=== PATIENT | male | born 1955 | race Caucasian/White ===

== ENCOUNTER 2024-01-20 22:52 | Emergency (ER) | payer OTHER, MEDICARE ==
[~2024-01-20] VITALS: Ht 185.4 cm; Wt 105.1 kg
[2024-01-20] MEDS ORDERED: JANTOVEN5 MG PO (23:08)
[2024-01-20] MEDS ORDERED: TOPROL XL50 MG PO (23:08)
[2024-01-20] MEDS ORDERED: ASPIRIN81 MG PO (23:09)
[2024-01-20 23:42] LABS: BASOPHILS 0.9 % (0-2); EOSINOPHILS 5.8 % (0-6); HEMATOCRIT 38.4 % (35.0-50.0); HEMOGLOBIN 12.8 g/dL (12.0-18.0); MCH 29.4 (27-36); MCHC 33.2 g/dl (30-36); MCV 88.4 fl (81-99); MONOCYTES 8.9 % (0-12); NEUTROPHILS 59.4 % (39-80); PLATELET COUNT 220 K/uL (140-440); RBC 4.35 M/ul (4.3-5.7); RDW 14.2 (10.5-15.0)
[2024-01-20 23:52] LABS: INR 1.88 (0.80-1.30); PROTIME 20.7 Sec (11.2-14.2)
[2024-01-20 23:56] LABS: ALBUMIN 3.7 g/dL (3.4-5.0); ALBUMIN/GLOBULIN RATIO 1.28 (1.1-2.4); BILIRUBIN, TOTAL 0.8 ng/dL (0.2-1.0); BUN/CREATININE RATIO 14.58 (6.0-28.6); CALCIUM 8.8 mg/dL (8.5-10.1); CREATININE, SERUM 0.96 mg/dL (0.70-1.30); PROTEIN, TOTAL 6.6 g/dL (6.4-8.2)
[2024-01-21] MEDS ORDERED: MORPHINE SULFATE 4 MG/ML VIAL ONE (00:18)
[2024-01-21] MEDS ORDERED: ondansetron HCL 4 MG/2 ML VIAL ONE (00:20)
[2024-01-21] MEDS ORDERED: ondansetron HCL 4 MG/2 ML VIAL IV ONE (00:30)
[2024-01-21] MEDS ORDERED: MORPHINE SULFATE 4 MG/ML VIAL IV ONE (00:30)
[2024-01-21 00:42] LABS: ABO A; ANTIBODY SCREEN NEGATIVE; RH POSITIVE
[2024-01-21] MEDS ORDERED: ONDANSETRON ODT8 MG PO (01:03)
[2024-01-21] MEDS ORDERED: HYDROCODON-ACE1 EA10 PO (01:03)
[2024-01-21] MEDS ORDERED: ONDANSETRON 4 MG HOME.PACK SL ONE (01:15)
[2024-01-21] MEDS ORDERED: HYDROCODONE BIT/ACETAMINOPHEN 5/325 MG 1 TAB HOME.PACK PO ONE (01:15)
[2024-01-21 01:37] VITALS: BP 153/88
== END 2024-01-21 01:44 | disposition home or self-care (01) ==
LOC: ED 22:52
PROVIDERS: Family Medicine
DX: S22.41XA Multiple fractures of ribs, right side, initial encounter for closed fracture (principal); S30.1XXA Contusion of abdominal wall, initial encounter; S20.211A Contusion of right front wall of thorax, initial encounter; V86.59XA Driver of other special all-terrain or other off-road motor vehicle injured in nontraffic accident, initial encounter; Z79.01 Long term (current) use of anticoagulants; Z79.82 Long term (current) use of aspirin
CPT/HCPCS: 36415; 71260; 74177; 80053; 85025; 85610; 86850; 86900; 86901; 96375; 99284-25; A9270; J2270; J2405; Q9967